=== PATIENT | male | born 1945 | race Caucasian/White ===

== ENCOUNTER → 2016-09-12 | Outpatient (CLI) | payer MEDICARE, OTHER | LOC: CT 09:40 | DX: R10.11 Right upper quadrant pain (principal); K76.9 Liver disease, unspecified | CPT/HCPCS: J7050; Q9962 ==

== ENCOUNTER → 2020-12-06 | Outpatient (CLI) | payer OTHER ==
[~2020-12-06] MED LIST: ASPIRIN EC81 MG PO; DOXYCYCLINE HY100 MG PO; LOSARTAN POTASS50 MG PO; METOPROLOL TART25 MG PO; PROAIR DIGIHAL90 MCG INH
== END ==
LOC: HEART 5 09:00
DX: I73.9 Peripheral vascular disease, unspecified (principal); R00.1 Bradycardia, unspecified

== ENCOUNTER → 2020-12-13 | Outpatient (CLI) | payer OTHER | LOC: HEART 5 13:30 | DX: I10 Essential (primary) hypertension (principal); R00.2 Palpitations; Z82.49 Family history of ischemic heart disease and other diseases of the circulatory system | CPT/HCPCS: 93306 ==

== ENCOUNTER 2021-01-08 02:38 | Inpatient (IN) | payer OTHER ==
[~2021-01-08] VITALS: Ht 175.3 cm; Wt 80.7 kg
[~2021-01-08 02:38] MED LIST changes: -ASPIRIN EC81 MG PO; -LOSARTAN POTASS50 MG PO; -METOPROLOL TART25 MG PO; -PROAIR DIGIHAL90 MCG INH
[2021-01-08 03:56] LABS: RED BLOOD COUNT 4.95 M/UL (4.20-5.50); WHITE BLOOD COUNT 13.9 K/UL (4.5-11.0)
[2021-01-08 04:13] LABS: BUN/CREATININE RATIO 22 (0-10)
[2021-01-08] MEDS ORDERED: PROAIR DIGIHAL90 MCG INH (10:07)
[2021-01-08] MEDS ORDERED: ASPIRIN EC81 MG PO (10:08)
[2021-01-08] MEDS ORDERED: LOSARTAN POTASS50 MG PO (10:09)
[2021-01-08] MEDS ORDERED: METOPROLOL TART25 MG PO (10:10)
[2021-01-09 03:35] LABS: RED BLOOD COUNT 4.98 M/UL (4.20-5.50)
[2021-01-09 03:38] LABS: WHITE BLOOD COUNT 22.9 K/UL (4.5-11.0)
[2021-01-09 03:58] LABS: BUN/CREATININE RATIO 28 (0-10)
== END 2021-01-09 12:55 | disposition left against medical advice (07) | DRG 871 ==
LOC: ER1 02:38 → CDU 06:05
PROVIDERS: Emergency Medicine; Internal Medicine; ADMIT Internal Medicine
PROC: XW13325 Transfusion of Convalescent Plasma (Nonautologous) into Peripheral Vein, Percutaneous Approach, New Technology Group 5 (ICD-10-PCS; principal; 2021-01-08)
PROC: XW033E5 Introduction of Remdesivir Anti-infective into Peripheral Vein, Percutaneous Approach, New Technology Group 5 (ICD-10-PCS; 2021-01-08)
PROC: 3E0333Z Introduction of Anti-inflammatory into Peripheral Vein, Percutaneous Approach (ICD-10-PCS; 2021-01-08)
PROC: 5A0945A Assistance with Respiratory Ventilation, 24-96 Consecutive Hours, High Flow/Velocity Cannula (ICD-10-PCS; 2021-01-08)
DX: A41.89 Other specified sepsis (principal); J96.01 Acute respiratory failure with hypoxia; U07.1 COVID-19; J12.82 Pneumonia due to coronavirus disease 2019; J15.9 Unspecified bacterial pneumonia; H91.90 Unspecified hearing loss, unspecified ear; I10 Essential (primary) hypertension; I48.91 Unspecified atrial fibrillation; Q54.9 Hypospadias, unspecified; Z88.2 Allergy status to sulfonamides; Z79.01 Long term (current) use of anticoagulants; Z90.49 Acquired absence of other specified parts of digestive tract; Z82.49 Family history of ischemic heart disease and other diseases of the circulatory system; Z79.82 Long term (current) use of aspirin
CPT/HCPCS: 36600; 71045; 80053; 82550; 82553; 82728; 82803; 83615; 84484; 85025; 85027; 86140; 86850; 86900; 86901; 93005; 94640; 94664; 94760; 99285; G0378; J0456; J1100; J1650; J2185; J7030; U0002